=== PATIENT | male | born 1995 | race Caucasian/White ===

== ENCOUNTER 2020-01-12 12:53 | Emergency (ER) | payer SELFPAY ==
[~2020-01-12] VITALS: Ht 177.8 cm; Wt 93.4 kg
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
[2020-01-12] MEDS ORDERED: ACHD5005 PO (14:53)
[2020-01-12 15:01] VITALS: BP 132/70
== END 2020-01-12 14:55 | disposition home or self-care (01) ==
LOC: ER FS 12:56
DX: S03.41XA Sprain of jaw, right side, initial encounter (principal); R40.2410 Glasgow coma scale score 13-15, unspecified time; Z88.0 Allergy status to penicillin; Z88.1 Allergy status to other antibiotic agents; Z88.8 Allergy status to other drugs, medicaments and biological substances; Y04.2XXA Assault by strike against or bumped into by another person, initial encounter
CPT/HCPCS: 70486